=== PATIENT | female | born 1965 | race Caucasian/White ===

== ENCOUNTER 2021-11-19 20:13 | Emergency (ER) | payer OTHER ==
[2021-11-19 20:38] VITALS: BP 113/76; PULSE 67; RESP 16; TEMP 98.1
[2021-11-19] MEDS ORDERED: ACET/COD 300 MG/30 MG STARTER PACK 6 TAB BTL PO STA (21:23)
[2021-11-19] MEDS ORDERED: HYDROcodone/APAP 5-325MG 1 EACH TAB PO STA (21:23)
--- NOTE | 2021-11-19 21:23 | XR ---
EXAMINATION TYPE: XR ankle complete LT DATE OF EXAM: 11/19/2021 8:50 PM INDICATION: Patient age:Female; 56 years old; Reason for study: fall with pain; COMPARISON: None TECHNIQUE: The left ankle is imaged in AP lateral and oblique projections. FINDINGS: Acute spiral fracture through the distal fibula. No evidence of intraventricular extension. The tibia is intact. No additional fractures are identified. There is soft tissue swelling around the lateral malleolus and lower leg. IMPRESSION: Acute spiral fracture of the left fibula with associated soft tissue swelling.
--- NOTE | 2021-11-19 21:33 | ED ---
Lower Extremity Injury HPI - General Chief Complaint: Extremity Injury, Lower Stated Complaint: Fall-L foot injury Time Seen by Provider: 11/19/21 21:04 Source: patient, RN notes reviewed Mode of arrival: EMS Limitations: no limitations - History of Present Illness Initial Comments: Patient was stepping down some steps to go to her car when she twisted her left ankle. Patient complaint pain in the lateral aspect of the ankle. She is describing an inversion type injury. Can bear weight with increased pain. No distal paresthesias. No proximal pain. Pain is exacerbated by movement, palpation, and attempted ambulation. No head or neck injury. No headache, no fever or chills, no changes in vision or hearing, no sore throat or difficulty with speech, no neck pain, no chest pain or shortness of breath, no abdominal pain, no nausea or vomiting, no changes in urination or bowel movements, no numbness or tingling, no skin rashes or lesions. - Related Data Allergies Allergy/AdvReac Type Severity Reaction Status Date / Time erythromycin base Allergy Vomiting Verified 11/19/21 20:34 Penicillins Allergy Vomiting Verified 11/19/21 20:34 Review of Systems ROS Statement: Those systems with pertinent positive or pertinent negative responses have been documented in the HPI. ROS Other: All systems not noted in ROS Statement are negative. Past Medical History Past Medical History: CVA/TIA, Thyroid Disorder History of Any Multi-Drug Resistant Organisms: None Reported Past Surgical History: Orthopedic Surgery, Tubal Ligation Past Psychological History: No Psychological Hx Reported Smoking Status: Current every day smoker Past Alcohol Use History: None Reported Past Drug Use History: None Reported General Exam Limitations: no limitations General appearance: alert, in no apparent distress Head exam: Present: atraumatic, normocephalic, normal inspection Eye exam: Present: normal appearance, PERRL, EOMI. Absent: scleral icterus, conjunctival injection, periorbital swelling ENT exam: Present: normal exam, normal oropharynx, mucous membranes moist Neck exam: Present: normal inspection, full ROM. Absent: tenderness, meningismus, lymphadenopathy Respiratory exam: Present: normal lung sounds bilaterally. Absent: respiratory distress, wheezes, rales, rhonchi, stridor Cardiovascular Exam: Present: regular rate, normal rhythm, normal heart sounds. Absent: systolic murmur, diastolic murmur, rubs, gallop, clicks GI/Abdominal exam: Present: soft. Absent: tenderness Extremities exam: Present: tenderness (In the area of the lateral malleolus and distal fibula), normal capillary refill, other (No break in skin integrity, pedal pulses 2+ and 4, capillary refill less than 2 seconds,). Absent: normal inspection (Swelling to the left lateral ankle), full ROM (left ankle limited by pain), pedal edema, joint swelling, calf tenderness Back exam: Present: normal inspection Neurological exam: Present: alert, oriented X3, CN II-XII intact Psychiatric exam: Present: normal affect, normal mood Skin exam: Present: warm, dry, intact, normal color. Absent: rash Course Vital Signs 11/19/21 20:35 Temperature 98.1 F Pulse Rate 67 Respiratory 16 Rate Blood Pressure 113/76 O2 Sat by Pulse 100 Oximetry Procedures - Orthopedic Splinting/Casting Injury #1 Side: left Lower Extremity Injury Location: short leg Lower Extremity Immobilizer: posterior splint, Talon wrap, fiberglass cast Other Orthopedic Equipment: crutches Additional Comments: Distal neurovascular status intact both pre-and post-application Medical Decision Making - Medical Decision Making Nondisplaced spiral fracture distal fibula. Patient counseled on follow-up. Patient counseled on nonweightbearing. Splint care. Patient was given one dose of [place] here and a acetaminophen/codeine starter pack. Discussed conservative therapy as well. Told to call orthopedics in the morning. Patient voiced understanding. Patient was told to return to the ER for any signs or symptoms worsen. Told to return immediately if any other problems arise. All questions answered. Treatment plan discussed. Patient in agreement Every effort has been made to ensure accuracy of this dictation. However, due to the limitations of electronic medical records and dictation devices, errors in charting still occur. Docking Pilot Dr. Middleton - Radiology Data Radiology results: report reviewed (X-ray positive for spiral fracture of the distal fibula.), image reviewed Disposition Clinical Impression: Nondisplaced oblique fracture of shaft of left fibula, initial encounter for closed fracture Disposition: HOME SELF-CARE Condition: Stable Instructions (If sedation given, give patient instructions): Ankle Fracture (ED) Additional Instructions: Return to the ER immediately if any symptoms worsen, new symptoms arise, or any other problems develop. Keep the splint on until follow-up with the orthopedic doctor. Call tomorrow morning to set the appointment up. Use the crutches. No weightbearing. Elevate when possible. Ice 20 minutes on and off. Do not get the splinting material wet. Is patient prescribed a controlled substance at d/c from ED?: No Referrals: Moncho Stafford DO [Doctor of Osteopathic Medicine] - 1-2 days Time of Disposition: 21:22
== END 2021-11-19 21:56 | disposition home or self-care (01) ==
LOC: EC 20:13
DX: S82.435A Nondisplaced oblique fracture of shaft of left fibula, initial encounter for closed fracture (principal); F17.200 Nicotine dependence, unspecified, uncomplicated; Z88.0 Allergy status to penicillin; Z88.1 Allergy status to other antibiotic agents; X50.1XXA Overexertion from prolonged static or awkward postures, initial encounter
CPT/HCPCS: 29515; 99283

== ENCOUNTER 2022-05-08 09:46 | Emergency (ER) | payer OTHER ==
[2022-05-08 09:51] VITALS: BP 124/86; PULSE 66; RESP 16; TEMP 99.2
[2022-05-08] MEDS ORDERED: HYDROcodone/APAP 5-325MG 1 EACH TAB PO STA (10:00)
--- NOTE | 2022-05-08 10:02 | ED ---
Upper Extremity HPI - General Chief Complaint: Extremity Injury, Upper Stated Complaint: Fall, L. Wrist Injury Time Seen by Provider: 05/08/22 09:57 Source: patient, old records reviewed Mode of arrival: ambulatory Limitations: no limitations - History of Present Illness Initial Comments: 57-year-old female presents emergency Department chief complaint left wrist pain. Patient states she fell yesterday getting off a chair putting up curtains. Patient states she cut herself on her left wrist. Patient states pain, swelling she is right-hand dominant no prior wrist injuries to her left. Patient denies any paresthesias patient did not take any pain medications prior arrival. Patient has ALLERGIES to erythromycin and penicillin products. - Related Data Allergies Allergy/AdvReac Type Severity Reaction Status Date / Time erythromycin base Allergy Vomiting Verified 05/08/22 09:48 Penicillins Allergy Vomiting Verified 05/08/22 09:48 Review of Systems ROS Statement: Those systems with pertinent positive or pertinent negative responses have been documented in the HPI. ROS Other: All systems not noted in ROS Statement are negative. Past Medical History Past Medical History: CVA/TIA, Thyroid Disorder History of Any Multi-Drug Resistant Organisms: None Reported Past Surgical History: Orthopedic Surgery, Tubal Ligation Past Psychological History: No Psychological Hx Reported Smoking Status: Current every day smoker Past Alcohol Use History: None Reported Past Drug Use History: None Reported General Exam Limitations: no limitations General appearance: alert, in no apparent distress Head exam: Present: atraumatic, normocephalic, normal inspection Neck exam: Present: normal inspection. Absent: tenderness, meningismus, lymphadenopathy Respiratory exam: Present: normal lung sounds bilaterally. Absent: respiratory distress, wheezes, rales, rhonchi, stridor Cardiovascular Exam: Present: regular rate, normal rhythm, normal heart sounds. Absent: systolic murmur, diastolic murmur, rubs, gallop, clicks Extremities exam: Present: other (Left wrist there is swelling, tenderness diffusely neurovascular intact there is no digit tenderness no proximal forearm tenderness pain with range of motion) Course Vital Signs 05/08/22 09:49 Temperature 99.2 F Pulse Rate 66 Respiratory 16 Rate Blood Pressure 124/86 O2 Sat by Pulse 99 Oximetry Medical Decision Making - Medical Decision Making X-rays read by me and radiology negative for acute fracture. Patient has a left wrist strain. Patient we discharged in stable condition return parameters were discussed. Disposition Clinical Impression: Left wrist sprain Disposition: HOME SELF-CARE Condition: Stable Instructions (If sedation given, give patient instructions): Wrist Injury (ED) Additional Instructions: Please return to the Emergency Department if symptoms worsen or any other concerns. Is patient prescribed a controlled substance at d/c from ED?: No Referrals: Thea Dumont MD [Primary Care Provider] - 1-2 days Time of Disposition: 10:47
--- NOTE | 2022-05-08 10:33 | XR ---
EXAMINATION TYPE: XR wrist complete LT DATE OF EXAM: 05/08/2022 COMPARISON: NONE HISTORY: 57-year-old female pain after fall TECHNIQUE: 4 views FINDINGS: There is moderate circumferential soft tissue swelling at the wrist. The radiocarpal and di stal radial ulnar joint as well as the midcarpal compartment appear intact. Mild degenerative spurrin g at the first CMC and triscaphe joints. No acute fracture, subluxation, dislocation seen. IMPRESSION: Circumferential soft tissue swelling but without acute osseous abnormality seen.
[2022-05-08] MEDS ORDERED: ACET/COD 300 MG/30 MG STARTER PACK 6 TAB BTL PO STA (10:47)
== END 2022-05-08 11:00 | disposition home or self-care (01) ==
LOC: EC 09:46
DX: S63.502A Unspecified sprain of left wrist, initial encounter (principal); F17.200 Nicotine dependence, unspecified, uncomplicated; Z88.0 Allergy status to penicillin; Z88.1 Allergy status to other antibiotic agents; Y28.9XXA Contact with unspecified sharp object, undetermined intent, initial encounter
CPT/HCPCS: 99283